=== PATIENT | male | born 1990 | race Caucasian/White ===

== ENCOUNTER 2020-12-15 20:01 | Emergency (ER) | payer MEDICAID, OTHER ==
[~2020-12-15] VITALS: Ht 177.8 cm; Wt 60.0 kg
--- NOTE | 2020-12-15 20:26 | NUR ---
PT WAS PICKED UP BY EMS. PT STATED "I HAVE BUGS" UPSTAIRS AND DOWN STAIRS" PT STANDING IN DECON ROOM NOT COOPARATING WITH STAFF. PT IS HYPER ALERT. STATS THAT HE HAS NOT TAKEN ANY FOREN SUBSTANCES. UNABLE TO GET VITALS AT THIS POINT.
--- NOTE | 2020-12-15 20:29 | NUR ---
UNABLE TO GET HISTORY FROM PATIENT.
--- NOTE | 2020-12-15 20:44 | NUR ---
thaddeus gomez. pt states that "i came here for a rash" no visable rash, vss pt in room
[2020-12-15 21:26] VITALS: BP 126/62
== END 2020-12-15 21:46 ==
LOC: ED 20:31
DX: T69.9XXA Effect of reduced temperature, unspecified, initial encounter (principal); Z72.9 Problem related to lifestyle, unspecified; F17.210 Nicotine dependence, cigarettes, uncomplicated; Z59.0 Homelessness; R44.1 Visual hallucinations
CPT/HCPCS: 99283

== ENCOUNTER 2021-03-23 19:46 | Emergency (ER) | payer MEDICAID ==
[~2021-03-23] VITALS: Ht 167.6 cm; Wt 70.0 kg
[2021-03-23 19:54] VITALS: BP 142/98
== END 2021-03-23 22:23 | disposition home or self-care (01) ==
LOC: ED 20:43
DX: M25.512 Pain in left shoulder (principal); Z72.9 Problem related to lifestyle, unspecified
CPT/HCPCS: 99283